=== PATIENT | male | born 1965 | race Caucasian/White ===

== ENCOUNTER 2025-04-14 13:05 | Inpatient (IN) | payer OTHER, MEDICAID, SELFPAY ==
[2025-04-14] VITALS (20 sets, daily range): BP systolic 141–168; BP diastolic 62–95; PULSE 57–79; RESP 14–22; TEMP 36.6; O2SAT 78–100; BMI 46.7
--- OUTSIDE RECORDS SUMMARY | 2025-04-14 13:14 | XMS_ITS | Encounter Summary ---
Author Organization [facility] Address [address] [place] [address] Care Team Providers Care Retail Loss Prevention Investigator Name Role Phone Unavailable Primary Care Provider Unavailabl e Encounter Details Date Type Department Care Team (Latest Contact Info) Description 01/31/[address] [facility] [address] 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
--- OUTSIDE RECORDS SUMMARY | 2025-04-14 13:14 | XMS_ITS | Clinical Summary ---
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
--- OUTSIDE RECORDS SUMMARY | 2025-04-14 13:14 | XMS_ITS | Encounter Summary ---
Author Organization [facility] Address [address] [place] [address] Care Team Providers Care Bond Writer Name Role Phone Unavailable Primary Care Provider Unavailabl e Encounter Details Date Type Department Care Team (Latest Contact Info) Description 01/31/2005 Outpatient Historical [facility] [address] [facility] [address] [place] [address] Kelvin Hair MD [address] [address] CERVICAL SPONDYLOSIS (Primary Dx) Social History Tobacco Use Types Packs/Day Years Used Date Smoking Tobacco: Never Assessed Sex and Gender Information Value Date Recorded Sex Assigned at Not on file 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
--- NOTE | 2025-04-14 13:23 | ECG_ITS ---
[employer] [facility] Test Date: 2025-04-14 Pat Name: Dale Adamson Department: Room: Gender: Male Rd Lab Technician: : 1965 Requested By: Augustina Royal Order Number: [id number] An MD: Michael Fontanez M.D. Measurements Intervals [place] Rate: 75 P: 5 [place]: 135 QRS: 44 QRSD: 110 T: 58 QT: 390 QTc: 438 Interpretive Statements SINUS RHYTHM POSSIBLE INFERIOR MYOCARDIAL INFARCTION , PROBABLY OLD [30 ms Q WAVE IN II/aVF] No previous ECG available for comparison Electronically Signed On 04-15-2025 08:07:08 CDT by Michael Fontanez M.D. [email or web address]
--- NOTE | 2025-04-14 13:23 | XR_ITS ---
WS: [id number] Exam: XR chest 1V portable [id number] Date/Time of Exam: 04/14/2025 1:25 PM Reason For Exam: Shortness of breath No priors. The lungs are fully expanded and clear. Normal cardiomediastinal silhouette. Bony structures are intact. No pleural effusion. XR/XR chest 1V portable [id number] IMPRESSION: 1. No acute cardiopulmonary finding.
--- NOTE | 2025-04-14 13:35 | W.ED.SOB ---
HPI - SOB/Dyspnea General: Chief Complaint: Shortness of Breath/Dyspnea Stated Complaint: low O2 Time Seen by Provider: 04/14/25 13:23 History of Present Illness: HPI Narrative: 59-year-old man with a history of tobacco dependence in remission, he quit about 15 years ago and no known current medical problems other than obesity who presents emergency room with shortness of breath for the last few days. His 's been sick as well as other family members. He is concerned that it may be an exposure from his home. He has no known asthma or COPD history. However he does have an extended tobacco use history. On arrival he is in the low 70s. He says last night he got into the 40s while he was at home before he started using his 's oxygen. He has had a severe cough and says his back is very sore from coughing. No known fevers. No altered mental status. No focal motor deficits. No lower extremity swelling. No abdominal pain. Related Data Home Medications ?Medication ?Instructions ?Recorded ?Confirmed No Known Home Medications 04/14/25 04/14/25 Allergies Allergy/AdvReac Type Severity Reaction Status Date / Time bee pollen Allergy ALGY-Anaphy Verified 04/14/25 13:19 laxis cephalexin (From Keflex) Allergy ALGY-Anaphy Verified 04/14/25 13:19 laxis erythromycin base Allergy ALGY-Anaphy Verified 04/14/25 13:19 laxis Penicillins Allergy ALGY-Anaphy Verified 04/14/25 13:19 laxis Review of Systems Narrative: Constitutional symptoms: Negative except as documented in HPI. Skin symptoms: Negative except as documented in HPI. Eye symptoms: Negative except as documented in HPI. ENMT symptoms: Negative except as documented in HPI. Respiratory symptoms: Negative except as documented in HPI. Cardiovascular symptoms: Negative except as documented in HPI. Gastrointestinal symptoms: Negative except as documented in HPI. Genitourinary symptoms: Negative except as documented in HPI. Musculoskeletal symptoms: Negative except as documented in HPI. Neurologic symptoms: Negative except as documented in HPI. Psychiatric symptoms: Negative except as documented in HPI. Endocrine symptoms: Negative except as documented in HPI. Physical Exam Narrative: EXAM NARRATIVE: General: Alert, no acute distress. Skin: Warm, dry. Head: Normocephalic, atraumatic. Neck: Supple, trachea midline. Eye: Extraocular movements are intact. Ears, nose, mouth and throat: Oral mucosa moist. Cardiovascular: Regular rate and rhythm, Normal peripheral perfusion. Respiratory: coarse, scattered wheeze, diminished breath sounds, moderate increased wob. tachypnea, breath sounds are equal, Symmetrical chest wall expansion. Gastrointestinal: Soft, Nontender, Non distended Musculoskeletal: Normal ROM, no deformity. Neurological: Alert and oriented, No focal neurological deficit observed. Psychiatric: Cooperative, appropriate mood & affect. Course Vital Signs: Vital signs: Vital Signs Temperature 97.9 F 04/14/25 13:13 Pulse Rate 75 04/14/25 16:00 Respiratory Rate 22 H 04/14/25 13:52 Blood Pressure 168/92 04/14/25 16:00 Pulse Oximetry 90 04/14/25 16:00 Oxygen Delivery Me thod High Flow Nasal C annula 04/14/25 16:00 Oxygen Flow Rate 15 04/14/25 16:00 MDM - SOB/Dyspnea Medical Decision Making Differential diagnosis for patient with shortness of breath includes but is not limited to and based on the above HPI, review of systems and physical exam: Pneumonia. Bronchitis. Asthma or COPD with acute exacerbation. Acute coronary syndrome / VT. Pulmonary embolism. Anxiety. Congestive heart failure. Viral infections including influenza and Covid-19. Atrial fibrillation. Anxiety. Pleural effusion. Pneumothorax. Orders placed to evaluate differential diagnosis based on the above differential, HPI and physical exam Chest x-ray: No acute process. No infiltrate. No pneumothorax. This was reviewed and interpreted by myself the emergency room physician. I also reviewed the radiology report. EKG: Time 1312. Rate 75. Normal sinus rhythm, nonspecific ST changes, no ectopy, normal [place] & QRS intervals, This was reviewed and interpreted by myself the ER physician at 1315. Repeat EKG: Time 1605. Rate 68. Normal sinus rhythm, some improvement in nonspecific ST changes from EKG done previously today. Normal [place] & QRS intervals, This was reviewed and interpreted by myself the ER physician at 1610 Lab Review: Laboratory results were reviewed and interpreted by myself the emergency room physician. Mild leukocytosis with a white count of 12,000. Hemoglobin normal at 16. Platelets normal at 230. BUN and creatinine are normal at 14 and 0.9. Troponin is mildly elevated at 20 and would be expected to have some heart strain with this [place] O2 sat. Flu COVID and RSV are negative. A full respiratory panel has been ordered. CRP is elevated at 36. proBNP is minimally elevated at 154. AB.4 with an 85% O2 sat on 6 L nasal cannula. I reviewed the patient's medical record. CTA chest with PE protocol: No evidence of PE. However there does appear to be of bilateral ground glass opacities that may be a pneumonia. Versus a viral pneumonitis. This was reviewed and interpreted by myself the emergency room physician. I also reviewed the radiology report. Reexamination: Patient continues to require 6 L nasal cannula. Work of breathing has improved quite a bit with rest. And with oxygen. No altered mental status. No focal motor deficits. He agrees to admission. Consultation: I spoke with Dr. Marrero who is on-call for the hospitalist service who agrees to admission. Assessment and plan: Hypoxemic respiratory failure Pneumonia/pneumonitis ?IV Solu-Medrol, 2 updrafts, IV doxycycline. ?Have changed him over to high flow nasal cannula. Hospitalist recommends BiPAP which is being ordered. -I discussed the patient with the hospitalist on-call who is admitting the patient. - Discussed findings and plan with patient. Answered any questions. - All laboratory values were reviewed and interpreted personally by myself, the ER physician - All imaging was reviewed and interpreted personally by myself, the ER physician. - Evaluation and treatment of this problem were appropriate in the emergency setting Critical Care: -I spent a total of >35 minutes of critical care time managing the patient, independent of any other practitioner. -The time involved in the performance of separately reportable procedures was not counted towards critical care time. Lab Data 04/14/25 13:37 04/14/25 13:37 Labs/Radiology: Radiology Impressions Chest X-Ray 04/14/25 13:23 IMPRESSION: 1. No acute cardiopulmonary finding. Chest CTA 04/14/25 14:46 IMPRESSION: 1. No evidence of central or lobar pulmonary embolism, though evaluation of the segmental and subsegmental pulmonary artery branches is limited by motion and suboptimal contrast bolus. 2. Multiple small patchy ground-glass opacity scattered throughout the lungs, with an upper and peripheral zone predominance, concerning for a viral or opportunistic infection. Other differential considerations would include hypersensitivity pneumonitis, respiratory bronchiolitis, sarcoidosis, and idiopathic interstitial pneumonia. Laboratory Results WBC 12.00 10^3/uL (3.29-11.43) H 04/14/25 13:37 RBC 5.80 10^6/uL (3.85-5.65) H 04/14/25 13:37 Hgb 15.70 g/dL (11.27-16.99) 04/14/25 13:37 Hct 52.6 % (37-53) 04/14/25 13:37 MCV 90.7 fl (82-101) 04/14/25 13:37 MCH 27.1 pg (27-33) 04/14/25 13:37 MCHC 29.8 g/dL (30-55) L 04/14/25 13:37 RDW 16.3 % (12.1-15.1) H 04/14/25 13:37 Plt Count 230 10^3/cmm (157-399) 04/14/25 13:37 MPV 10.8 fL (7.4-10.4) H 04/14/25 13:37 Neut % (Auto) 76.7 % 04/14/25 13:37 Lymph % (Auto) 13.1 % 04/14/25 13:37 [place] % (Auto) 6.1 % 04/14/25 13:37 Eos % (Auto) 2.8 % 04/14/25 13:37 Baso % (Auto) 0.6 % 04/14/25 13:37 Neut # (Auto) 9.22 10^3/uL (1.8-7.7) H 04/14/25 13:37 Lymph # (Auto) 1.6 10^3/uL (0.8-4.8) 04/14/25 13:37 [place] # (Auto) 0.7 10^3/uL (0.2-0.9) 04/14/25 13:37 Eos # (Auto) 0.3 10^3/uL (0.0-0.8) 04/14/25 13:37 Baso # (Auto) 0.1 10^3/uL (0.0-0.1) 04/14/25 13:37 Nucleated RBC % (auto) 0 % 04/14/25 13:37 Nucleated RBCs # 0.0 /100WBC 04/14/25 13:37 Specimen Type Arterial 04/14/25 13:37 Sample Site Radial, right 04/14/25 13:37 ABG pH 7.46 (7.35-7.45) H 04/14/25 13:37 ABG pCO2 45.5 mmHg (35-45) H 04/14/25 13:37 ABG pO2 50.8 mmHg (80.0-100.0) L 04/14/25 13:37 ABG PO2/FiO2 Ratio 115 04/14/25 13:37 ABG HCO3 32.7 mmol/L (22-26) H 04/14/25 13:37 ABG O2 Saturation 87.0 04/14/25 13:37 ABG Base Excess 7.6 mmol/L (-2.0-2.0) H 04/14/25 13:37 [place] Test Pos 04/14/25 13:37 A-a O2 Gradient 27.1 mmHg (5-10) H 04/14/25 13:37 Hematocrit 50.8 % (42-52) 04/14/25 13:37 Hgb O2 Saturation 84.8 % (95-100) L 04/14/25 13:37 Carboxyhemoglobin 1.7 %THgb (0.4-20.1) 04/14/25 13:37 Methemoglobin 0.7 % (0.4-1.5) 04/14/25 13:37 Total Hemoglobin 16.6 g/dL (14-18) 04/14/25 13:37 Sodium 141.0 mmol/L (131-143) 04/14/25 13:37 Potassium 3.8 mmol/L (3.5-5.0) 04/14/25 13:37 Glucose 90.0 mg/dL (70-115) 04/14/25 13:37 Ionized Calcium 1.2 mmol/L (1.1-1.4) 04/14/25 13:37 O2 Delivery Device Nc 04/14/25 13:37 O2 Liters/Min 6.0 % 04/14/25 13:37 FiO2 44.0 % 04/14/25 13:37 Front Desk Team Member ID Monro 04/14/25 13:37 Sodium 141 mmol/L (136-145) 04/14/25 13:37 Potassium 3.8 mmol/L (3.5-5.1) 04/14/25 13:37 Chloride 102 mmol/L (98-107) 04/14/25 13:37 Carbon Dioxide 29 mmol/L (22-29) 04/14/25 13:37 Anion Gap 13.8 (5-19) 04/14/25 13:37 BUN 14 mg/dL (6-20) 04/14/25 13:37 Creatinine 0.9 mg/dL (0.7-1.2) 04/14/25 13:37 GFR Calculation 87.0 mL/min (90-130) L 04/14/25 13:37 Glucose 96 mg/dL (65-115) 04/14/25 13:37 Calculated Osmolality 292 mOsm/kg (285-295) 04/14/25 13:37 Lactic Acid 0.9 mmol/L (0.5-2.2) 04/14/25 13:37 Calcium 8.7 mg/dL (8.5-10.5) 04/14/25 13:37 Total Bilirubin 0.8 mg/dL (0.15-1.2) 04/14/25 13:37 AST 15 U/L (0-40) 04/14/25 13:37 ALT 19 U/L (0-41) 04/14/25 13:37 Alkaline Phosphatase 61 U/L (40-130) 04/14/25 13:37 Troponin T Baseline 20 ng/L (0-15) H 04/14/25 13:37 Troponin T 120 Minute Cancelled 04/14/25 16:05 Delta Troponin T Cancelled 04/14/25 16:05 C-Reactive Protein 36.2 mg/L (0.0-4.9) H 04/14/25 13:37 NT-Pro-B Natriuret Pep 154 pg/mL (0-125) H 04/14/25 13:37 Total Protein 7.1 g/dL (6.6-8.7) 04/14/25 13:37 Albumin 3.4 g/dL (3.5-5.2) L 04/14/25 13:37 Globulin 3.7 g/dL (1.3-4.6) 04/14/25 13:37 Influenza A (PCR) Negative (Negative) 04/14/25 13:27 Influenza Type B (PCR) Negative (Negative) 04/14/25 13:27 RSV (PCR) Negative (Negative) 04/14/25 13:27 SARS-CoV-2 (PCR) Negative (Negative) 04/14/25 13:27 All radiology interpretation(s) finalized by discharge Discharge Plan Discharge Patient Disposition: Admitted As Inpatient Clinical Impression: Community acquired pneumonia, Acute hypoxemic respiratory failure Condition: Stable Coding Level of Care Code ED Carpet Installer Helper for Jerry Roberson
[2025-04-14 13:47] LABS: Hematocrit 52.6 % (37-53); Hemoglobin 15.70 g/dL (11.27-16.99); Mean Corpuscular HGB Conc 29.8 g/dL (30-55); Mean Corpuscular Hemoglobin 27.1 pg (27-33); Mean Corpuscular Volume 90.7 fl (82-101); Nucleated Red Blood Cells % 0 %; Platelet Count 230 10^3/cmm (157-399); Red Blood Count 5.80 10^6/uL (3.85-5.65); White Blood Count 12.00 10^3/uL (3.29-11.43)
[2025-04-14 13:49] LABS: ABG PCO2 45.5 mmHg (35-45); ABG PH Result 7.46 (7.35-7.45); Arterial Blood Gas Hematocrit 50.8 % (42-52); Blood Gas Allen Test Pos; Blood Gas Sample Type Arterial; Carboxyhemoglobin 1.7 %THgb (0.4-20.1); Glucose Level-ABG 90.0 mg/dL (70-115); HCO3 ABG 32.7 mmol/L (22-26); Ionized Calcium Level - ABG 1.2 mmol/L (1.1-1.4); Methemoglobin 0.7 % (0.4-1.5); Oxygen Saturation ABG 87.0; PO2 ABG 50.8 mmHg (80.0-100.0); Potassium Level - ABG 3.8 mmol/L (3.5-5.0); Sodium Level - ABG 141.0 mmol/L (131-143)
[2025-04-14 13:50] LABS: Alveolar-Arterial Oxygen Gradi 27.1 mmHg (5-10); Blood Gas LPM 6.0 %; Blood Gas Operator Identificat MONRO; Blood Gas Sample Site Radial, right; PO2 FiO2 Ratio Arterial Blood 115
[2025-04-14 14:03] LABS: Lactic Sepsis W/Reflex 0.9 mmol/L (0.5-2.2)
[2025-04-14 14:04] LABS: Troponin(5th) Baseline 20 ng/L (0-15)
[2025-04-14] MEDS: methylPREDNISolone sod succ 125 mg/2 mL INJ IVP (14:20)
[2025-04-14 14:24] LABS: Alanine Aminotransferase 19 U/L (0-41); Albumin Level 3.4 g/dL (3.5-5.2); Alkaline Phosphatase 61 U/L (40-130); Anion Gap 13.8 (5-19); Aspartate Amino Transferase 15 U/L (0-40); Blood Urea Nitrogen 14 mg/dL (6-20); Calcium 8.7 mg/dL (8.5-10.5); Carbon Dioxide 29 mmol/L (22-29); Chloride 102 mmol/L (98-107); Creatinine Clr Calc Pharmacy 147.7646; Globulin 3.7 g/dL (1.3-4.6); Glucose 96 mg/dL (65-115); NT Pro B Type Natriuretic Pept 154 pg/mL (0-125); Osmolality Calculated 292 mOsm/kg (285-295); Potassium 3.8 mmol/L (3.5-5.1); Sodium 141 mmol/L (136-145); Total Protein 7.1 g/dL (6.6-8.7)
[2025-04-14 14:26] LABS: Respiratory Syncytial Virus Ce NEGATIVE (Negative); SARS-CoV-2 PCR NEGATIVE (Negative)
--- NOTE | 2025-04-14 14:46 | CTR_ITS ---
PROCEDURE INFORMATION: Exam: CTA Chest With Contrast Exam date and time: 04/14/2025 3:17 PM Age: 59 years old Clinical indication: Other: Hypoxemia TECHNIQUE: Imaging protocol: Computed tomographic angiography of the chest with contrast. Exam focused on the arteries. 3D rendering (Not supervised by radiologist): MIP and/or 3D reconstructed images were created by the technologist. Radiation optimization: All CT scans at this facility use at least one of these dose optimization techniques: automated exposure control; mA and/or kV adjustment per patient size (includes targeted exams where dose is matched to clinical indication); or iterative reconstruction. Contrast material: OMNIPAQUE 350; Contrast volume: 100 ml; Contrast route: INTRAVENOUS (IV); COMPARISON: CR XR chest 1V portable [id number] 04/14/2025 1:35 PM RADIATION DOSE METRICS: Total DLP (mGy-cm): 1216.3 FINDINGS: Tubes, catheters and devices: None. Pulmonary arteries: No evidence of central or lobar pulmonary embolism, though evaluation of the segmental and subsegmental pulmonary artery branches is limited by motion and suboptimal contrast bolus. Aorta: No aortic aneurysm. No aortic dissection. Mild atherosclerotic calcification of the aortic arch. Thyroid: Unremarkable. Trachea: Patent trachea and central airways. Lungs: No focal consolidation. Multiple small patchy ground-glass opacity scattered throughout the lungs, with an upper and peripheral zone predominance. Pleural spaces: No pneumothorax. No pleural effusion. Heart: No cardiomegaly. No pericardial effusion. Coronary arteries: Coronary artery calcifications are present. Esophagus: Unremarkable. Mediastinal space: Unremarkable. Lymph nodes: No mediastinal, hilar, or axillary lymphadenopathy. Bones/joints: No acute fracture. Soft tissues: Unremarkable. CT/CT angio chest PE protcl [id number] IMPRESSION: 1. No evidence of central or lobar pulmonary embolism, though evaluation of the segmental and subsegmental pulmonary artery branches is limited by motion and suboptimal contrast bolus. 2. Multiple small patchy ground-glass opacity scattered throughout the lungs, with an upper and peripheral zone predominance, concerning for a viral or opportunistic infection. Other differential considerations would include hypersensitivity pneumonitis, respiratory bronchiolitis, sarcoidosis, and idiopathic interstitial pneumonia.
--- NOTE | 2025-04-14 14:50 | PC.PHAR ---
Patient states he ihas no prescribed medications , but has been taking a family memebers inhaler and nebulizer solution .
--- NOTE | 2025-04-14 15:23 | ECG_ITS ---
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 Measurements Intervals [place] Rate: 68 P: 8 [place]: 138 QRS: 26 QRSD: 111 T: 59 QT: 422 QTc: 449 Interpretive Statements SINUS RHYTHM MODERATE INTRAVENTRICULAR CONDUCTION DELAY [110+ ms QRS DURATION] Compared to ECG 04/14/2025 13:12:06 Intraventricular conduction delay now present Myocardial infarct finding no longer present Electronically Signed On 04-15-2025 18:26:16 CDT by Michael Fontanez M.D. [email or web address]
[2025-04-14] MEDS: iohexol 350 mg/mL 500 mL Btl (per mL) IV (15:26)
[2025-04-14] MEDS: doxycycline 100 MG in sodium chloride 0.9% (plus) 100 ML IV (16:39)
[2025-04-14 16:52] LABS: Troponin 5 2HR 16.96 ng/L (0-15)
[2025-04-14 16:54] LABS: Troponin 5 2HR Delta -3.04 ABS# (0-10)
--- NOTE | 2025-04-14 17:31 | PM.HP ---
Providers/Chief Complaint Admitting Physician: Domenica Marrero MD Chief Complaint: low O2 History of Present Illness Dale Adamson is a 59 year old male with history of tobacco use who reports not taking any chronic medications presents with 7-week history of shortness of breath. Reports having sick contacts at home. He was a previous smoker and quit about 15 years ago. He has no history of asthma or COPD. Patient was hypoxic on arrival. A CTA was done which was negative for PE but did show some groundglass opacities. He is being admitted for acute hypoxemic respiratory failure. It is noted that he was on high flow oxygen and currently on BiPAP. Review of Systems General: Reports: 10 or more systems reviewed and unremarkable except in HPI and below Const: Reports: fever(s), body aches and change in appetite Eyes: Denies: change in vision ENMT: Denies: throat pain Card: Denies: chest pain or palpitations Resp: Reports: dyspnea and non-productive cough GI: Denies: abdominal pain or nausea Skin/Breast: Denies: rash or pruritus Medications/Allergies Home Medications ?Medication ?Instructions ?Recorded ?Confirmed ?Last Taken ?Type No Known Home Medications 04/14/25 04/14/25 Unknown History Allergies Allergy/AdvReac Type Severity Reaction Status Date / Time bee pollen Allergy ALGY-Anaphy Verified 04/14/25 13:19 laxis bee venom protein (honey bee) Allergy Unknown Verified 04/14/25 18:10 cephalexin (From Keflex) Allergy ALGY-Anaphy Verified 04/14/25 13:19 laxis erythromycin base Allergy ALGY-Anaphy Verified 04/14/25 13:19 laxis Penicillins Allergy ALGY-Anaphy Verified 04/14/25 13:19 laxis venom-wasp Allergy Unknown Verified 04/14/25 18:11 Vitals/I&O/Wt Last Vital Signs Temp 97.9 F 04/14/25 13:13 Pulse 64 04/14/25 16:45 Resp 22 H 04/14/25 13:52 BP 147/66 04/14/25 16:41 Pulse Ox 90 04/14/25 16:45 O2 Del Method High Flow Nasal Cannula 04/14/25 16:45 O2 Flow Rate 15 04/14/25 16:45 Weight last 48 hrs Weight 364 lb Physical Exam Narrative: General: No acute distress on BiPAP Cardiovascular: Regular rate rhythm Lungs: Crackles on BiPAP Abdomen: Soft nontender MSK: No synovitis or deformities Data 04/14/25 13:37 04/14/25 13:37 A&P Assessment and plan 1. Acute hypoxemic respiratory failure: 2. Community acquired pneumonia: Plan: 59-year-old male with previous history of tobacco use presents with 7-week history of progressive dyspnea and hypoxemia differentials include viral infection. Acute hypoxemic respiratory failure Abnormal CT chest History of tobacco use Morbid obesity Plan: 1. Admit to ICU 2. Continue empiric antibiotics we will use cefepime and azithromycin 3. Follow-up respiratory viral panel 4. IV Solu-Medrol, as needed DuoNehannah 5. Consider pulmonary consultation DVT: Lovenox PDMP PDMP Reviewed: Not Reviewed Attestations Medical Necessity Statement*: respiratory failure critical care time > 30 minutes Coding Level of Care Code Critical Care >/= 30 minutes Diagnoses Acute hypoxemic respiratory failure J96.01 Community acquired pneumonia J18.9 Time Spent (min) 60
--- NOTE | 2025-04-14 18:09 | PC.NURSE ---
This nurse, TODDLER CAREGIVER, cannot do admission assessment.
[2025-04-14] MEDS: levofloxacin-dextrose 5 % 500 MG/100 ML PREMIX 100 MG IV (18:25)
[2025-04-14 18:35] LABS: Coronavirus 229E,HKU1,NL63,OC4 Not Detected (NOT DETECT); Parainfluenza Virus Type 1 Not Detected (NOT DETECT); Parainfluenza Virus Type 2 Not Detected (NOT DETECT); Parainfluenza Virus Type 3 Not Detected (NOT DETECT); Parainfluenza Virus Type 4 Not Detected (NOT DETECT); SARS-COV-2 Not Detected (NOT DETECT)
--- NOTE | 2025-04-14 18:56 | PC.ADMIT ---
[address] Admission Note: The patient,Dale Adamson,59 y/o, was given written information regarding hospital policies, unit procedures and contact persons. Patient's smoking status: . Vital Signs - 8 hr 04/14/25 13:13 04/14/25 13:30 04/14/25 13:42 Temperature 97.9 F Pulse Rate 76 77 75 Respiratory Rate 21 H Blood Pressure 151/90 Pulse Oximetry 78 L 81 L Oxygen Delivery Method Room Air Nasal Cannula Oxygen Flow Rate 6 Fraction of Inspired Oxygen 04/14/25 13:52 04/14/25 14:00 04/14/25 14:31 Temperature Pulse Rate 67 79 79 Respiratory Rate 22 H Blood Pressure 151/62 Pulse Oximetry 85 L 95 Oxygen Delivery Method Nasal Cannula High Flow Nasal Cannula Oxygen Flow Rate 6 Fraction of Inspired Oxygen 04/14/25 14:36 04/14/25 15:00 04/14/25 15:30 Temperature Pulse Rate 77 73 67 Respiratory Rate Blood Pressure 141/86 149/67 Pulse Oximetry 96 90 94 Oxygen Delivery Method High Flow Nasal Cannula High Flow Nasal Cannula High Flow Nasal Cannula Oxygen Flow Rate Fraction of Inspired Oxygen 04/14/25 15:49 04/14/25 16:00 04/14/25 16:41 Temperature Pulse Rate 57 L 75 70 Respiratory Rate Blood Pressure 168/92 147/66 Pulse Oximetry 95 90 Oxygen Delivery Method High Flow Nasal Cannula High Flow Nasal Cannula Oxygen Flow Rate 15 Fraction of Inspired Oxygen 04/14/25 16:45 04/14/25 18:00 04/14/25 18:00 Temperature Pulse Rate 64 72 68 Respiratory Rate 20 H Blood Pressure Pulse Oximetry 90 100 100 Oxygen Delivery Method High Flow Nasal Cannula BiPAP Oxygen Flow Rate 15 Fraction of Inspired Oxygen 70 04/14/25 18:42 04/14/25 18:43 Temperature Pulse Rate 69 69 Respiratory Rate 20 H Blood Pressure 144/85 144/85 Pulse Oximetry 97 97 Oxygen Delivery Method BiPAP BiPAP Oxygen Flow Rate Fraction of Inspired Oxygen
--- NOTE | 2025-04-14 18:56 | PC.NURSE ---
this nurse assumed pt care from Shawnee GARCIA at 1850.
--- NOTE | 2025-04-14 19:23 | ECG_ITS ---
[employer] [place] Test Date: 2025-04-14 Pat Name: Dale Adamson Department: Room: ED Gender: Male Varitypist: : 1965 Requested By: Augustina Royal Order Number: [id number] Juve MD: Michael Fontanez M.D. Measurements Intervals [place] Rate: 62 P: 66 [place]: 164 QRS: -7 QRSD: 114 T: 40 QT: 437 QTc: 444 Interpretive Statements SINUS RHYTHM MODERATE INTRAVENTRICULAR CONDUCTION DELAY [110+ ms QRS DURATION] Compared to ECG 04/14/2025 16:05:55 No significant changes Electronically Signed On 04-15-2025 08:09:42 CDT by Michael Fontanez M.D. [email or web address]
[2025-04-14 19:51] LABS: Troponin 5 6HR 12.73 ng/L (0-15)
[2025-04-14 19:52] LABS: Troponin 5 6HR Delta -7.27 ng/L (0-12)
[2025-04-14] MEDS: methylPREDNISolone sod succ 125 mg/2 mL INJ 60 MG IVP (20:31)
[2025-04-15] VITALS (69 sets, daily range): BP systolic 126–196; BP diastolic 66–132; PULSE 49–83; RESP 11–34; TEMP 36.5–37.1; O2SAT 80–97; BMI 45.9
[2025-04-15] MEDS: methylPREDNISolone sod succ 125 mg/2 mL INJ 60 MG IVP ×3 (03:44→20:40)
[2025-04-15 03:49] LABS: Hematocrit 52.4 % (37-53); Hemoglobin 15.70 g/dL (11.27-16.99); Mean Corpuscular HGB Conc 30.0 g/dL (30-55); Mean Corpuscular Hemoglobin 27.3 pg (27-33); Mean Corpuscular Volume 91.0 fl (82-101); Nucleated Red Blood Cells % 0 %; Platelet Count 236 10^3/cmm (157-399); Red Blood Count 5.76 10^6/uL (3.85-5.65); White Blood Count 10.76 10^3/uL (3.29-11.43)
[2025-04-15 04:08] LABS: Alanine Aminotransferase 18 U/L (0-41); Albumin Level 3.6 g/dL (3.5-5.2); Alkaline Phosphatase 68 U/L (40-130); Aspartate Amino Transferase 16 U/L (0-40); Blood Urea Nitrogen 12 mg/dL (6-20); Calcium 8.6 mg/dL (8.5-10.5); Carbon Dioxide 30 mmol/L (22-29); Chloride 103 mmol/L (98-107); Creatinine Clr Calc Pharmacy 188.1900; Globulin 4.0 g/dL (1.3-4.6); Glucose 137 mg/dL (65-115); Magnesium 2.4 mg/dL (1.7-2.3); Osmolality Calculated 292 mOsm/kg (285-295); Sodium 140 mmol/L (136-145); Total Protein 7.6 g/dL (6.6-8.7)
[2025-04-15 04:12] LABS: Anion Gap 11.5 (5-19); Potassium 4.5 mmol/L (3.5-5.1)
--- NOTE | 2025-04-15 09:09 | XR_ITS ---
WS: [id number] Exam: XR chest 1V portable [id number] Date/Time of Exam: 04/15/2025 9:15 AM Reason For Exam: hypoxemia Comparison 04/14/2025. Increasing pulmonary vascular congestion with increase in heart size noted. The possibility of congestive heart failure secondary to fluid overload might be considered. No pneumothorax. The mediastinum and bony thorax are unremarkable. XR/XR chest 1V portable [id number] IMPRESSION: 1. Mild cardiac enlargement with pulmonary vascular congestion suggesting CHF. Fluid overload might be considered.
--- NOTE | 2025-04-15 13:50 | PC.NURSE ---
1345 Patient sleeping, heart rate dropping down to 48 occasionally. Woke patient up for RT to do checks. 1350 patient asleep again and heartrate dropping to 48, bp 159/78. Messaged Dr. Marrero. NO new orders as long as can arrouse and bp ok.
--- NOTE | 2025-04-15 17:22 | USCV_ITS ---
Juan Diego Dale Age: 59 Gender: M : 1965 Exam Date: 04/15/2025 20:51 Ordering Phys: Domenica Marrero MD Technologist: STEVEN [place] [facility] [place]: sob, hypoxia in 70s, long-term smoker, obesity BP: 147 / 66 HR: 67 Rhythm: Sinus Technical Quality: Adequate MEASUREMENTS (Male / Female) Normal Values 2D ECHO LV Diastolic Diameter PLAX 6.2 cm 4.2 - 5.9 / 3.9 - 5.3 cm IVS Diastolic Thickness 1.3 cm 0.6 - 1.0 / 0.6 - 0.9 cm IVS Systolic Thickness 2.0 cm LVPW Diastolic Thickness 1.4 cm 0.6 - 1.0 / 0.6 - 0.9 cm LVPW Systolic Thickness 1.8 cm LVOT Diameter 2.5 cm LV Ejection Fraction 2D Teich 62.5 % LV Ejection Fraction MOD 4C 54.6 % LV Ejection Fraction MOD 2C 56.8 % LV Ejection Fraction 2C AL 56.2 % LA Diameter 4.3 cm Aorta at Sinotubular Diameter 2.9 cm IVC Diameter 1.7 cm M-MODE LA Ao Ratio MM 1.2 AV Cusp Separation MM 2.4 cm DOPPLER AV Peak Velocity 146.0 cm/s LVOT Peak Velocity 97.0 cm/s AV Area Cont Eq vti 3.8 cm squared AV Area Cont Eq pk 3.4 cm squared MV Peak Velocity 105.0 cm/s MV Area PHT 3.7 cm squared Mitral E to A Ratio 0.9 TV Peak E Velocity 44.0 cm/s PV Peak Velocity 109.0 cm/s FINDINGS Left Ventricle Normal left ventricular size and systolic function, EF 55%. No gross wall motion abnormalities.Grade I/IV diastolic dysfunction (abnormal relaxation filling pattern), normal to mildly elevated filling pressures. Right Ventricle The right ventricle is normal in size and function. Right Atrium The right atrium is normal in size. Left Atrium Possibly of normal size Mitral Valve No gross abnormalities noted Aortic Valve Thickened aortic valve. Tricuspid Valve No gross abnormalities noted Pulmonic Valve No gross abnormalities noted Pericardium No pericardial effusion. Aorta Normal aortic annulus size. IVC Normal inferior vena cava. CONCLUSIONS Normal left ventricular size and systolic function, EF 55%. No gross wall motion abnormalities.Grade I/IV diastolic dysfunction (abnormal relaxation filling pattern), normal to mildly elevated filling pressures. Thickened aortic valve. There is no pericardial effusion. There are no intracardiac masses. Technically somewhat difficult study because of the poor ultrasonic window. No similar previous studies are available for comparison Dr Michael Fontanez MD [facility] (Electronically Signed) Final Date: 15 April 2025 10:21 S
[2025-04-15] MEDS: levofloxacin-dextrose 5 % 500 MG/100 ML PREMIX 100 MG IV (17:42)
--- NOTE | 2025-04-15 17:50 | PC.NURSE ---
1750 Voided 500ml dark yellow with sediment in it. Patient noted after speciman discarded. Will ask DrAlvaro to do UA test.
[2025-04-16] VITALS (36 sets, daily range): BP systolic 145–188; BP diastolic 77–104; PULSE 42–91; RESP 10–29; TEMP 36.7–37.2; O2SAT 89–98
[2025-04-16 00:35] LABS: Glucose Urine UA Negative (Normal); Nitrate Urine Negative (Negative)
[2025-04-16 00:40] LABS: Add Urine Microscopic? YES
[2025-04-16 01:09] LABS: Specific Gravity, Urine 1.044 (1.005-1.030)
[2025-04-16 01:10] LABS: UA Slide Review UA Slide Review Perf
[2025-04-16 04:13] LABS: Hematocrit 50.6 % (37-53); Hemoglobin 15.30 g/dL (11.27-16.99); Mean Corpuscular HGB Conc 30.2 g/dL (30-55); Mean Corpuscular Hemoglobin 27.2 pg (27-33); Mean Corpuscular Volume 90.0 fl (82-101); Nucleated Red Blood Cells % 0 %; Platelet Count 232 10^3/cmm (157-399); Red Blood Count 5.62 10^6/uL (3.85-5.65); White Blood Count 16.56 10^3/uL (3.29-11.43)
[2025-04-16] MEDS: methylPREDNISolone sod succ 125 mg/2 mL INJ 60 MG IVP ×3 (04:42→20:35)
[2025-04-16 04:44] LABS: Alanine Aminotransferase 21 U/L (0-41); Albumin Level 3.4 g/dL (3.5-5.2); Alkaline Phosphatase 57 U/L (40-130); Anion Gap 13.0 (5-19); Aspartate Amino Transferase 18 U/L (0-40); Blood Urea Nitrogen 16 mg/dL (6-20); Calcium 8.6 mg/dL (8.5-10.5); Carbon Dioxide 27 mmol/L (22-29); Chloride 104 mmol/L (98-107); Creatinine Clr Calc Pharmacy 188.1900; Globulin 3.7 g/dL (1.3-4.6); Glucose 123 mg/dL (65-115); Osmolality Calculated 293 mOsm/kg (285-295); Potassium 4.0 mmol/L (3.5-5.1); Sodium 140 mmol/L (136-145); Total Protein 7.1 g/dL (6.6-8.7)
--- NOTE | 2025-04-16 07:04 | PC.NURSE ---
Upon entering room patient is very upset and states I want food, shower, or I want transferred to another hospital. Notified patient that he can not take a shower at present time because of large amount of oxygen required but we could help him with a bath and he states That is not happening, it is against my buddhist. No woman or man is touching my body . Explained to patient that we could get him things set up so he could clean up, states I want a shower. Becomes angry and is yelling. Explained to patient that we would have to talk to the doctor about him being able to have something to eat that we have to be careful due to his respiratory compromise. Explained to patient that I am here to take care of him and I did not want to be spoken to like he is speaking to me. Patient continues to yell angrily. Notified patient that I would talk with doctor and offshore wind operations manager of the ICU. Notified LYDIA Clarke.
--- NOTE | 2025-04-16 09:43 | PC.NURSE ---
Patient calm and sitting on side of bed. Apologized for the way he spoke to this nurse this morning. Explained to patient that he was able to eat breakfast, breakfast obtained from nutrition and delivered to patient. Explained to patient that if we can get him weaned down further on his oxygen he may be able to take a shower later. Offered to get patient wash cloths and soap and water if he wanted to get cleaned up. Patient states no, that is too much like being licked, I cant do that .
--- NOTE | 2025-04-16 13:51 | P.PN_ITS ---
Subjective 2 Subjective: doing better O2 being weaned some impulsive behavior in AM wants to eat and take a shower Vitals/I&O/Wt Last Vital Signs Temp 98.9 F 04/16/25 08:00 Pulse 83 04/16/25 13:20 Resp 18 04/16/25 13:05 BP 153/88 04/16/25 13:00 Pulse Ox 95 04/16/25 13:05 O2 Del Method Heated High Flow 04/16/25 13:05 O2 Flow Rate 40 04/16/25 13:05 FiO2 40 04/16/25 13:05 04/15/25 04/16/25 04/16/25 22:59 06:59 14:59 Intake Total 1350 / 2350 1537.5 / 1537.5 Output Total 500 / 500 800 / 800 Balance 850 / 1850 737.5 / 737.5 Weight last 48 hrs Weight 352 lb 4.8 oz Weight 358 lb Weight 358 lb Physical Exam 2 Narrative: General: No acute distress on hiflo Cardiovascular: Regular rate rhythm Lungs: Crackles on BiPAP Abdomen: Soft nontender MSK: No synovitis or deformities Data 04/16/25 04:04 04/16/25 04:04 A&P Assessment and plan 1. Acute hypoxemic respiratory failure: 2. Community acquired pneumonia: Plan: 59-year-old male with previous history of tobacco use presents with 7-week history of progressive dyspnea and hypoxemia differentials include viral infection. Acute hypoxemic respiratory failure Abnormal CT chest History of tobacco use Morbid obesity Plan: 1. wean o2, HF 2. Continue empiric antibiotics cefepime and azithromycin 3. consider wean steroids 4. IV Solu-Medrol, as needed Brenda 5. Consider pulmonary consultation DVT: Lovenox PDMP PDMP Reviewed: Not Reviewed Attestations 2 Medical Necessity Statement*: oxygen weaned Coding Level of Care Code 04670 Diagnoses Acute hypoxemic respiratory failure J96.01 Community acquired pneumonia J18.9
--- NOTE | 2025-04-16 15:19 | PC.SOCIAL ---
IMM UPDATED IMM dated and initialed copy given to patient and copy placed in chart.
--- NOTE | 2025-04-16 18:36 | PC.NURSE ---
Patient requiring 3L high flow NC O2. Notified housemaid of need for a place for patient to take a shower in approx 2 hours after IV antibiotics are complete.
[2025-04-16] MEDS: levofloxacin-dextrose 5 % 500 MG/100 ML PREMIX 100 MG IV (20:30)
[2025-04-17] VITALS (19 sets, daily range): BP systolic 148–176; BP diastolic 77–103; PULSE 53–83; RESP 16–34; TEMP 36.3–37.1; O2SAT 90–97
[2025-04-17 04:11] LABS: Hematocrit 52.4 % (37-53); Hemoglobin 15.60 g/dL (11.27-16.99); Mean Corpuscular HGB Conc 29.8 g/dL (30-55); Mean Corpuscular Hemoglobin 26.9 pg (27-33); Mean Corpuscular Volume 90.3 fl (82-101); Nucleated Red Blood Cells % 0 %; Platelet Count 243 10^3/cmm (157-399); Red Blood Count 5.80 10^6/uL (3.85-5.65); White Blood Count 14.25 10^3/uL (3.29-11.43)
[2025-04-17 04:40] LABS: Alanine Aminotransferase 22 U/L (0-41); Albumin Level 3.4 g/dL (3.5-5.2); Alkaline Phosphatase 52 U/L (40-130); Anion Gap 12.4 (5-19); Aspartate Amino Transferase 23 U/L (0-40); Blood Urea Nitrogen 20 mg/dL (6-20); Calcium 8.6 mg/dL (8.5-10.5); Carbon Dioxide 29 mmol/L (22-29); Chloride 105 mmol/L (98-107); Creatinine Clr Calc Pharmacy 163.1763; Globulin 3.5 g/dL (1.3-4.6); Glucose 119 mg/dL (65-115); Osmolality Calculated 298 mOsm/kg (285-295); Potassium 4.4 mmol/L (3.5-5.1); Sodium 142 mmol/L (136-145); Total Protein 6.9 g/dL (6.6-8.7)
[2025-04-17] MEDS: methylPREDNISolone sod succ 125 mg/2 mL INJ 60 MG IVP (05:49)
--- NOTE | 2025-04-17 15:13 | P.PN_ITS ---
Subjective 2 Subjective: Patient reports he is feeling much better today. He feels like he can breathe. He states that he has not been able to walk for months and was able to get out of bed to a seated position easily. He reports that he was told to do a 36-hour fast and he feels that this has been the most helpful thing. Vitals/I&O/Wt Last Vital Signs Temp 97.3 F L 04/17/25 12:00 Pulse 74 04/17/25 14:00 Resp 17 04/17/25 14:00 BP 166/103 04/17/25 14:00 Pulse Ox 93 04/17/25 14:00 O2 Del Method High Flow Nasal Cannula 04/17/25 14:00 O2 Flow Rate 3 04/17/25 14:00 FiO2 40 04/16/25 13:05 04/17/25 04/17/25 04/17/25 06:59 14:59 22:59 Intake Total 480 / 2767.5 250 / 250 Balance 480 / 1567.5 250 / 250 Weight last 48 hrs Weight 159.801 kg Physical Exam 2 Narrative: Tall obese white male in no acute distress at time of examination Heart regular normal S1-S2 without murmurs clicks gallops rubs Lungs clear to auscultation although diminished throughout Abdomen soft nontender nondistended positive bowel sounds Extremities no clubbing cyanosis or edema Data 04/17/25 03:34 04/17/25 03:34 A&P Assessment and plan 1. Acute hypoxemic respiratory failure: 2. Community acquired pneumonia: Bilateral Plan: 59-year-old male with previous history of tobacco use presents with 7-week history of progressive dyspnea and hypoxemia Acute hypoxemic respiratory failure Abnormal CT chest History of tobacco use Morbid obesity Plan: 1. Oxygen at 3 L this morning. Will continue to wean oxygen. Spoke with respiratory therapy and will perform home O2 evaluation tomorrow 2. Continue empiric antibiotics cefepime and azithromycin 3. Wean steroids today from 60 mill equivalents every 8 hours to 40 mill equivalents every 12 hours. Expecting patient to get 1 more dose tonight and in the morning 4. Transfer to floor. DVT: Lovenox PDMP PDMP Reviewed: Not Reviewed Attestations 2 Medical Necessity Statement*: Acute respiratory failure. Patient continues to require hospitalization for IV antibiotics oxygen and IV steroids Coding Level of Care Code 00515 Diagnoses Acute hypoxemic respiratory failure J96.01 Community acquired pneumonia J18.9
--- NOTE | 2025-04-17 18:02 | PC.NURSE ---
overall improved today up in room ambulating no distress noted voided per bathroom , pidd in place high flow nasal canula in place , lung few crackles noted at this time .
[2025-04-17] MEDS: methylPREDNISolone sod succ 125 mg/2 mL INJ 40 MG IVP (19:41)
[2025-04-17] MEDS: levofloxacin-dextrose 5 % 500 MG/100 ML PREMIX 100 MG IV (20:56)
[2025-04-18] VITALS (12 sets, daily range): BP systolic 158–172; BP diastolic 87–111; PULSE 52–79; RESP 18–26; TEMP 36.4–37; O2SAT 88–95
--- NOTE | 2025-04-18 08:19 | P.DS_ITS ---
Discharge Providers Date of Admission: 04/14/25 17:02 Date of Discharge: April 18, 2025 Attending Provider at Admission: Domenica Marrero MD Attending Provider at Discharge: Sidney Payne DO Diagnoses at Discharge Discharge Diagnosis 1. Acute hypoxemic respiratory failure: 2. Community acquired pneumonia: Reason for Visit Reason for Visit: low O2 Brief History: 59-year-old male with a history of tobac co use 15 years ago who stopped taking his chronic medications presents with a 7-week history of shortness of breath. Although he reports having sick contacts at home. He denies history of asthma or COPD. He was found to be hypoxic CT to rule out PE was negative but did show ground glass opacities. Patient was admitted for hypoxic respiratory failure and suspected pneumonia. Hospital Course Hospital Course The patient was placed in the ICU. He was placed on high flow oxygen and also required BiPAP. With the use of IV antibiotics and IV steroids the patient quickly improved. His blood pressure was elevated and losartan was started. Consideration for and CYN inhibitor however patient has multiple anaphylactic reactions and felt best to avoid. Patient had no further wheezing and the IV steroids were discontinued. Home oxygen evaluation is being done at this time. Patient had been off oxygen for 10 to 15 minutes when I saw him and his pulse ox was around 90. I anticipate he will need home oxygen and will be ordered. Physical Exam Narrative: Tall obese white male in no acute distress at time of examination Heart regular normal S1-S2 without murmurs clicks gallops rubs Lungs clear to auscultation although diminished throughout Abdomen soft nontender nondistended positive bowel sounds Extremities no clubbing cyanosis or edema Discharge Data Studies Completed and Pending Completed Studies During Hospitalization Category Date Time Status CT angio chest PE protcl [id number] Stat Cat Scan 04/14/25 14:46 Completed CXRP [XR chest 1V portable [id number]] Routine Exams 04/15/25 09:09 Completed XR chest 1V portable [id number] Stat Exams 04/14/25 13:23 Completed CV. echo complete* [id number] Routine Ultrasound 04/15/25 17:22 Completed Radiology Impressions Chest CTA 04/14/25 14:46 IMPRESSION: 1. No evidence of central or lobar pulmonary embolism, though evaluation of the segmental and subsegmental pulmonary artery branches is limited by motion and suboptimal contrast bolus. 2. Multiple small patchy ground-glass opacity scattered throughout the lungs, with an upper and peripheral zone predominance, concerning for a viral or opportunistic infection. Other differential considerations would include hypersensitivity pneumonitis, respiratory bronchiolitis, sarcoidosis, and idiopathic interstitial pneumonia. Chest X-Ray 04/15/25 09:09 IMPRESSION: 1. Mild cardiac enlargement with pulmonary vascular congestion suggesting CHF. Fluid overload might be considered. Laboratory Results WBC 14.25 10^3/uL (3.29-11.43) H 04/17/25 03:34 RBC 5.80 10^6/uL (3.85-5.65) H 04/17/25 03:34 Hgb 15.60 g/dL (11.27-16.99) 04/17/25 03:34 Hct 52.4 % (37-53) 04/17/25 03:34 MCV 90.3 fl (82-101) 04/17/25 03:34 MCH 26.9 pg (27-33) L 04/17/25 03:34 MCHC 29.8 g/dL (30-55) L 04/17/25 03:34 RDW 15.9 % (12.1-15.1) H 04/17/25 03:34 Plt Count 243 10^3/cmm (157-399) 04/17/25 03:34 MPV 11.0 fL (7.4-10.4) H 04/17/25 03:34 Neut % (Auto) 89.6 % 04/17/25 03:34 Lymph % (Auto) 5.9 % 04/17/25 03:34 Bond % (Auto) 3.3 % 04/17/25 03:34 Eos % (Auto) 0.1 % 04/17/25 03:34 Baso % (Auto) 0.1 % 04/17/25 03:34 Neut # (Auto) 12.78 10^3/uL (1.8-7.7) H 04/17/25 03:34 Lymph # (Auto) 0.8 10^3/uL (0.8-4.8) 04/17/25 03:34 Bond # (Auto) 0.5 10^3/uL (0.2-0.9) 04/17/25 03:34 Eos # (Auto) 0.0 10^3/uL (0.0-0.8) 04/17/25 03:34 Baso # (Auto) 0.0 10^3/uL (0.0-0.1) 04/17/25 03:34 Nucleated RBC % (auto) 0 % 04/17/25 03:34 Nucleated RBCs # 0.0 /100WBC 04/17/25 03:34 Specimen Type Arterial 04/14/25 13:37 Sample Site Radial, right 04/14/25 13:37 ABG pH 7.46 (7.35-7.45) H 04/14/25 13:37 ABG pCO2 45.5 mmHg (35-45) H 04/14/25 13:37 ABG pO2 50.8 mmHg (80.0-100.0) L 04/14/25 13:37 ABG PO2/FiO2 Ratio 115 04/14/25 13:37 ABG HCO3 32.7 mmol/L (22-26) H 04/14/25 13:37 ABG O2 Saturation 87.0 04/14/25 13:37 ABG Base Excess 7.6 mmol/L (-2.0-2.0) H 04/14/25 13:37 Estiven Test Pos 04/14/25 13:37 A-a O2 Gradient 27.1 mmHg (5-10) H 04/14/25 13:37 Hematocrit 50.8 % (42-52) 04/14/25 13:37 Hgb O2 Saturation 84.8 % (95-100) L 04/14/25 13:37 Carboxyhemoglobin 1.7 %THgb (0.4-20.1) 04/14/25 13:37 Methemoglobin 0.7 % (0.4-1.5) 04/14/25 13:37 Total Hemoglobin 16.6 g/dL (14-18) 04/14/25 13:37 Sodium 141.0 mmol/L (131-143) 04/14/25 13:37 Potassium 3.8 mmol/L (3.5-5.0) 04/14/25 13:37 Glucose 90.0 mg/dL (70-115) 04/14/25 13:37 Ionized Calcium 1.2 mmol/L (1.1-1.4) 04/14/25 13:37 O2 Delivery Device Nc 04/14/25 13:37 O2 Liters/Min 6.0 % 04/14/25 13:37 FiO2 44.0 % 04/14/25 13:37 Print Manager ID Sarah 04/14/25 13:37 Sodium 142 mmol/L (136-145) 04/17/25 03:34 Potassium 4.4 mmol/L (3.5-5.1) 04/17/25 03:34 Chloride 105 mmol/L (98-107) 04/17/25 03:34 Carbon Dioxide 29 mmol/L (22-29) 04/17/25 03:34 Anion Gap 12.4 (5-19) 04/17/25 03:34 BUN 20 mg/dL (6-20) 04/17/25 03:34 Creatinine 0.8 mg/dL (0.7-1.2) 04/17/25 03:34 GFR Calculation 99.6 mL/min (90-130) 04/17/25 03:34 Glucose 119 mg/dL (65-115) H 04/17/25 03:34 Calculated Osmolality 298 mOsm/kg (285-295) H 04/17/25 03:34 Lactic Acid 0.9 mmol/L (0.5-2.2) 04/14/25 13:37 Calcium 8.6 mg/dL (8.5-10.5) 04/17/25 03:34 Magnesium 2.4 mg/dL (1.7-2.3) H 04/15/25 03:06 Total Bilirubin 0.5 mg/dL (0.15-1.2) 04/17/25 03:34 AST 23 U/L (0-40) 04/17/25 03:34 ALT 22 U/L (0-41) 04/17/25 03:34 Alkaline Phosphatase 52 U/L (40-130) 04/17/25 03:34 Troponin T Baseline 20 ng/L (0-15) H 04/14/25 13:37 Troponin T 120 Minute 16.96 ng/L (0-15) H 04/14/25 16:23 Delta Troponin T -3.04 ABS# (0-10) L 04/14/25 16:23 Troponin T Hi Sens 6Hr 12.73 ng/L (0-15) 04/14/25 19:21 Troponin T Hi Sens 6Hr Delta -7.27 ng/L (0-12) L 04/14/25 19:21 C-Reactive Protein 36.2 mg/L (0.0-4.9) H 04/14/25 13:37 NT-Pro-B Natriuret Pep 154 pg/mL (0-125) H 04/14/25 13:37 Total Protein 6.9 g/dL (6.6-8.7) 04/17/25 03:34 Albumin 3.4 g/dL (3.5-5.2) L 04/17/25 03:34 Globulin 3.5 g/dL (1.3-4.6) 04/17/25 03:34 Urine Color [place] (Yellow) A 04/16/25 00:05 Urine Appearance Turbid (CLEAR) A 04/16/25 00:05 Urine pH 5.5 (5-7) 04/16/25 00:05 Ur Specific [place] 1.044 (1.005-1.030) H 04/16/25 00:05 Urine Protein Trace (Negative) A 04/16/25 00:05 Urine Glucose (UA) Negative (Normal) 04/16/25 00:05 Urine Ketones 1+ (Negative) H 04/16/25 00:05 Urine Blood Negative (Negative) 04/16/25 00:05 Urine Nitrate Negative (Negative) 04/16/25 00:05 Urine Bilirubin 1+ (Negative) H 04/16/25 00:05 Urine Urobilinogen 1.0 mg/dL (Negative) 04/16/25 00:05 Ur Leukocyte Esterase Negative (Negative) 04/16/25 00:05 Urine RBC 0-2 /hpf (0-2) 04/16/25 00:05 Urine WBC 0-5 /hpf (0-5) 04/16/25 00:05 Ur Squamous Epith Cells 0-5 /hpf (0-5) 04/16/25 00:05 Amorphous Sediment 4+ /hpf 04/16/25 00:05 Urine Bacteria None seen /hpf (NONE) 04/16/25 00:05 Hyaline Casts 9.91 /lpf 04/16/25 00:05 Adenovirus (PCR) Not detected (NOT DETECT) 04/14/25 08:25 C. pneumoniae DNA (PCR) Not detected (NOT DETECT) 04/14/25 08: Coronavirus 229E (PCR) Not detected (NOT DETECT) 04/14/25 08:25 Human Metapneumovir PCR Not detected (NOT DETECT) 04/14/25 08:25 Influenza A (H1) PCR Not detected (NOT DETECT) 04/14/25 08: Influenza A (PCR) Negative (Negative) 04/14/25 13:27 Influ A (H1/09) PCR Not detected (NOT DETECT) 04/14/25 08: Influenza A (H3) PCR Not detected (NOT DETECT) 04/14/25 08: Influenza Type A (PCR) Not detected (NOT DETECT) 04/14/25 08:25 Influenza Type B (PCR) Negative (Negative) 04/14/25 13:27 M. pneumoniae (PCR) Not detected (NOT DETECT) 04/14/25 08: Parainfluenza 1 (PCR) Not detected (NOT DETECT) 04/14/25 08: Parainfluenza 2 (PCR) Not detected (NOT DETECT) 04/14/25 08: Parainfluenza 3 (PCR) Not detected (NOT DETECT) 04/14/25 08: Parainfluenza 4 (PCR) Not detected (NOT DETECT) 04/14/25 08: RSV (PCR) Negative (Negative) 04/14/25 13:27 RSV Type A (PCR) Not detected (NOT DETECT) 04/14/25 08: RSV Type B (PCR) Not detected (NOT DETECT) 04/14/25 08: Entero/Rhino (PCR) Not detected (NOT DETECT) 04/14/25 08: SARS-CoV-2 (PCR) Negative (Negative) 04/14/25 13:27 Vitals Last Vital Signs Temp 97.6 F 04/18/25 04:00 Pulse 52 L 04/18/25 05:39 Resp 18 04/18/25 04:00 BP 172/111 04/18/25 04:00 Pulse Ox 92 04/18/25 04:00 O2 Del Method High Flow Nasal Cannula 04/18/25 04:00 O2 Flow Rate 3 04/18/25 04:00 FiO2 40 04/16/25 13:05 Discharge Plan Discharge Patient Disposition: Home Condition: Stable Prescriptions: New losartan 50 mg Tablet 50 mg PO DAILY Qty: 30 0RF azithromycin [Zithromax] 500 mg tablet 500 mg PO DAILY 7 Days Qty: 7 0RF levofloxacin 750 mg tablet 750 mg PO DAILY 7 Days Qty: 7 0RF Circuitry Negative Inspector OK for DC: Hospitalist Discharge Order = DC NOW: Discharge Order (Routine); Ordered 04/18/25 Ordered By: Sidney Payne Referrals: Shay Alba MD [Family Provider, Internal Medicine] Discharge Diet: Cardiac Discharge Activity: Increase activity as tolerated Patient Instructions: Patient Portal & [facility] Instructions Plan of Treatment: Please finish your course of antibiotics for 7 days. Start taking losartan 50 mg p.o. every day for your blood pressure. Monitor your pressure at home and if it is dipping below [id number] systolic or if you are in the normal range and do not feel well you may discontinue. Wear your oxygen at rest in bed and with activity Discharge Attestations Time Spent in Discharge Care*: greater than 30 min Quality Metrics Clinical Quality Measures [ No reported AMI, CVA or VTE this stay] Coding Level of Care Code Acute Code for [facility] Diagnoses Acute hypoxemic respiratory failure J96.01 Community acquired pneumonia J18.9
[2025-04-18] MEDS: methylPREDNISolone sod succ 125 mg/2 mL INJ 40 MG IVP (08:39)
--- NOTE | 2025-04-18 13:41 | PC.NURSE ---
all d/c instructions educated to patient, iv removed, family at bedside to transport patient home
== END 2025-04-18 13:44 | disposition home or self-care (01) | DRG 193 ==
LOC: ER 16:28 → ER IP 17:02 → ICU 04-15 00:44
PROVIDERS: Admitting Provider Internal Medicine; Emergency Provider Emergency Medicine; Family Provider Internal Medicine; Visit Provider Internal Medicine
DX: J18.9 Pneumonia, unspecified organism (principal); J96.01 Acute respiratory failure with hypoxia; Z68.42 Body mass index [BMI] 45.0-49.9, adult; E66.01 Morbid (severe) obesity due to excess calories; Z87.891 Personal history of nicotine dependence; Z88.0 Allergy status to penicillin; Z88.1 Allergy status to other antibiotic agents; Z91.030 Bee allergy status; Z79.899 Other long term (current) drug therapy; Z99.81 Dependence on supplemental oxygen; Z11.52 Encounter for screening for COVID-19
CPT/HCPCS: 36415; 36600; 71045; 71275; 80051; 80053; 81001; 82330; 82805; 83605; 83735; 83880; 84484; 85025; 86140; 87486; 87581; 87633; 87637; 93005; 93306; 94640; 94760; 96365; 96372; 96375; 96376; 99291; J0456; J1650; J1956; J2919; J3490; J7030; J7050; J7613; J9999